=== PATIENT | female | born 1955 | race Caucasian/White ===

== ENCOUNTER 2018-02-03 08:28 | Day surgery (SDC) | payer BC ==
--- NOTE | 2018-02-03 08:18 | HP ---
DATE OF SURGERY: 02/03/2018 HISTORY OF PRESENT ILLNESS: The patient is a 62 year-old with no prior colonoscopy, no bloody stools, no pain and no change in bowel movements. Family in the past who had colon cancer, aunt had colon cancer, had mother and some uncles had some polyps. PAST MEDICAL HISTORY: Hypercholesterolemia, hypertension. PAST SURGICAL HISTORY: Abscess on buttock area in the past. MEDICATIONS: Pravastatin, aspirin, losartan. ALLERGIES: NKDA. FAMILY HISTORY: Family in the past who had colon cancer, had an aunt had colon cancer. Liver disease, heart disease and cancer. SOCIAL HISTORY: No smoking or alcohol abuse. REVIEW OF SYSTEMS: Twelve systems reviewed. No chest pain or palpitations other systems negative or noncontributory as above and per preadmission questionnaire. PHYSICAL EXAMINATION: GENERAL: No acute distress. HEENT: Sclerae nonicteric. NECK: No JVD. CHEST: Equal excursion, nonlabored breathing. CVS: Regular rate and rhythm. ABDOMEN: Soft. No peritoneal signs. EXTREMITIES: No significant edema. NEURO: Alert, oriented, moving extremities symmetrically. No gross motor deficits noted. RECTAL: Deferred timed to endoscopy exam. IMPRESSION: Patient in need for screening colonoscopy. I feel she is a candidate. She is shown the risk sheet and explained the procedure in detail including but not limited to bleeding or infection, small risk of bowel injury or perforation possibly requiring open procedure, risk of missed or nondiagnosis or incomplete exam possibly requiring barium enema, other studies or procedures, general risk of bowel prep or sedation, postoperative risk of nausea or cramping but not limited to. She understands and agrees to the planned procedure and will proceed with outpatient screening colonoscopy.
[~2018-02-03 08:28] MED LIST: Lactated Ringers 1,000 ML IV ONE; Lactated Ringers 1,000 ML IV SCH
[2018-02-03] MEDS ORDERED: DIPRIVAN 200 MG/20 ML IV ONE (08:29)
[2018-02-03 08:57] VITALS: O2SAT 100
[2018-02-03 11:28] VITALS: PULSE 72
[2018-02-03 12:02] VITALS: BP 157/91
--- NOTE | 2018-02-03 14:38 | OP ---
SURGERY DATE/TIME: 02/03/2018 1027 PREOPERATIVE DIAGNOSIS: Need for screening colonoscopy. POSTOPERATIVE DIAGNOSES: 1) Small polyp sigmoid colon, small raised lesion transverse colon, sigmoid colon and rectum, small raised lesion versus hyperplastic lesion. 2) Tortuous colon. 3) Mild diverticulosis. 4) Small internal and external hemorrhoids. PROCEDURES: 1) Colonoscopy to cecum, hot snare polypectomy, small sigmoid colon polyp. 2) Hot biopsy removal of small raised lesion versus hyperplastic lesion versus early polyps. Transverse colon x3, sigmoid colon x1, rectum x2. SURGEON: Dr. Andrew Ruggiero. ANESTHESIA: MAC. ESTIMATED BLOOD LOSS: Minimal. INDICATIONS: As noted above. Risks and benefits explained in detail but not limited to and consent obtained. DESCRIPTION OF PROCEDURE AND FINDINGS: The patient is taken to the endoscopy room. After official time out and no disagreement with planned procedure, digital rectal exam did not reveal any rectal masses. She had some internal and external hemorrhoids. Video colonoscope inserted up through the tortuous sigmoid, descending, transverse and ascending colon. With external pressure the scope was eventually able to be passed down ascending colon to cecum. Appendiceal orifice and valve well visualized. Prep overall was fair with some areas of liquidy semi-solid and solid stool that was able to be suction irrigated as clear as possible. Just slightly limiting the exam for very tiny lesions. Otherwise on slow careful withdrawal of the scope over the next 10 minutes there were no signs of any large polyps, masses or obstructing lesions. There were three very small raised lesions versus early polyps versus hyperplastic lesions in the transverse colon removed with hot biopsy forceps with brief bursts of cautery. Good hemostasis noted. Scope pulled back to the left colon. She had mild diverticulosis. In the more proximal sigmoid colon had small raised lesion versus hyperplastic lesion versus early polyp removed with hot biopsy forceps, and in the more distal sigmoid colon there was about 22 cm a 3 mm polyp was removed with hot snare polypectomy with brief bursts of cautery. Good hemostasis noted. Polyp was retrieved per the staff. The scope was slowly and carefully withdrawn back to the rectum. Two to three very small raised lesions versus hyperplastic lesions versus early polyps removed with hot biopsy forceps with brief bursts of cautery. Good hemostasis noted. Otherwise she had some small internal and external hemorrhoids. There were no signs of any large polyps, masses or obstructing lesions. The scope is withdrawn. Findings discussed with the family out in the waiting area. I will see her back in the office in a week or two to go over the results. Likely pending path results I recommend follow up colonoscopy in three years if any of these are adenomas.
== END 2018-02-03 12:00 | disposition home or self-care (01) ==
LOC: SDC 08:28
PROVIDERS: ATTEND Surgery
DX: Z12.11 Encounter for screening for malignant neoplasm of colon (principal); K63.5 Polyp of colon; K63.9 Disease of intestine, unspecified; K62.9 Disease of anus and rectum, unspecified; K57.90 Diverticulosis of intestine, part unspecified, without perforation or abscess without bleeding; K64.4 Residual hemorrhoidal skin tags; K64.8 Other hemorrhoids; Z80.0 Family history of malignant neoplasm of digestive organs; E78.00 Pure hypercholesterolemia, unspecified; I10 Essential (primary) hypertension; Z79.899 Other long term (current) drug therapy
CPT/HCPCS: 88305; 94250; J2704

== ENCOUNTER 2021-10-04 13:52 | Day surgery (SDC) | payer MEDICARE, OTHER ==
[2021-10-04] MEDS ORDERED: LIDOCAINE HCL 2% 100 MG/5 ML IJ ONE (13:53)
[2021-10-04] MEDS ORDERED: Depo-Medrol 40 MG/ML IM ONE (13:53)
[2021-10-04] MEDS ORDERED: Lactated Ringers 1,000 ML IV ONE (15:06)
[2021-10-04] MEDS ORDERED: DIPRIVAN 200 MG/20 ML IV ONE (15:48)
--- NOTE | 2021-10-04 21:52 | XRAY ---
Indication: Bilateral L4-S1 MBB. Intraoperative fluoroscopy provided for 12 seconds. Single digital spot image submitted for interpretation demonstrates posterior needle tips projecting over the expected left and right L4-S1 nerve roots. Correlate with intraoperative findings/report.
--- NOTE | 2021-10-04 22:12 | XRAY ---
12 seconds of fluoroscopy was used in surgery for a bilateral L4-S1 MBB.
== END 2021-10-04 16:04 | disposition home or self-care (01) ==
LOC: SDC-PAIN 13:52
PROVIDERS: ATTEND Psychiatry & Neurology Pain Medicine
DX: M47.816 Spondylosis without myelopathy or radiculopathy, lumbar region (principal); Z79.899 Other long term (current) drug therapy
CPT/HCPCS: 64493; 64494; 72020; 77002; J1030; J2704

== ENCOUNTER 2021-11-01 11:35 | Day surgery (SDC) | payer MEDICARE, OTHER ==
[2021-11-01] MEDS ORDERED: Marcaine Mpf 0.5% Vial 30 Ml IJ ONE (11:36)
[2021-11-01] MEDS ORDERED: Depo-Medrol 40 MG/ML IM ONE (11:36)
[2021-11-01] MEDS ORDERED: Lactated Ringers 1,000 ML IV ONE (12:48)
--- NOTE | 2021-11-01 15:04 | XRAY ---
Indication: Bilateral L4-S1 MBB. Intraoperative fluoroscopy provided for 10 seconds. Single digital spot image submitted for interpretation demonstrates posterior needle tips projecting over the expected left and right L4-S1 nerve roots. Correlate with intraoperative findings/report.
--- NOTE | 2021-11-01 15:34 | XRAY ---
10 seconds fluoroscopy time in surgery for bilateral L4-S1 MBB.
== END 2021-11-01 13:45 | disposition home or self-care (01) ==
LOC: SDC-PAIN 11:35
PROVIDERS: ATTEND Psychiatry & Neurology Pain Medicine
DX: M47.816 Spondylosis without myelopathy or radiculopathy, lumbar region (principal); Z79.899 Other long term (current) drug therapy
CPT/HCPCS: 64493; 64494; 72020; 77002; J1030

== ENCOUNTER 2021-11-29 15:20 | Day surgery (SDC) | payer MEDICARE, OTHER ==
[2021-11-29] MEDS ORDERED: XYLOCAINE-MPF 1% 5ML SDV IJ ONE (15:21)
[2021-11-29] MEDS ORDERED: Depo-Medrol 40 MG/ML IM ONE (15:21)
[2021-11-29] MEDS ORDERED: Marcaine Mpf 0.5% Vial 30 Ml IJ ONE (15:21)
[2021-11-29] MEDS ORDERED: Lactated Ringers 1,000 ML IV ONE (16:35)
[2021-11-29] MEDS ORDERED: DIPRIVAN 200 MG/20 ML IV ONE (17:38)
--- NOTE | 2021-11-30 07:42 | XRAY ---
Indication: Right L4-S1 RFA. Intraoperative fluoroscopy provided for 18 seconds. 3 digital spot image submitted for interpretation demonstrates posterior needle tips projecting over the expected right L4-S1 nerve roots. Correlate with intraoperative findings/report.
--- NOTE | 2021-11-30 22:06 | XRAY ---
18 seconds of fluoroscopy was used in surgery for a right L4-S1 RFA.
== END 2021-11-29 18:25 | disposition home or self-care (01) ==
LOC: SDC-PAIN 15:20
PROVIDERS: ATTEND Psychiatry & Neurology Pain Medicine
DX: M47.816 Spondylosis without myelopathy or radiculopathy, lumbar region (principal); Z79.899 Other long term (current) drug therapy
CPT/HCPCS: 64635; 64636; 72100; 77002; J1030; J2704

== ENCOUNTER 2021-12-06 11:40 | Day surgery (SDC) | payer MEDICARE, OTHER ==
[2021-12-06] MEDS ORDERED: Marcaine Mpf 0.5% Vial 30 Ml IJ ONE (11:41)
[2021-12-06] MEDS ORDERED: XYLOCAINE-MPF 1% 5ML SDV IJ ONE (11:41)
[2021-12-06] MEDS ORDERED: Depo-Medrol 40 MG/ML IM ONE (11:41)
[2021-12-06] MEDS ORDERED: DIPRIVAN 200 MG/20 ML IV ONE (14:19)
--- NOTE | 2021-12-06 16:52 | XRAY ---
Indication: Left L4-S1 RFA. Intraoperative fluoroscopy provided for 16 seconds. 4 digital spot image submitted for interpretation images demonstrates posterior needle tips projecting over the expected left L4-S1 nerve roots. Correlate with intraoperative findings/report.
--- NOTE | 2021-12-06 16:56 | XRAY ---
16 seconds of fluoroscopy was used in surgery for a left L4-S1 RFA.
[2021-12-06] MEDS ORDERED: Lactated Ringers 1,000 ML IV ONE (17:37)
== END 2021-12-06 14:50 | disposition home or self-care (01) ==
LOC: SDC-PAIN 11:40
PROVIDERS: ATTEND Psychiatry & Neurology Pain Medicine
DX: M47.816 Spondylosis without myelopathy or radiculopathy, lumbar region (principal); Z79.899 Other long term (current) drug therapy
CPT/HCPCS: 64635; 64636; 72100; 77002; J1030; J2704

== ENCOUNTER 2021-12-27 07:14 | Day surgery (SDC) | payer MEDICARE, OTHER ==
[2021-12-27] MEDS ORDERED: Depo-Medrol 40 MG/ML IM ONE (07:15)
[2021-12-27] MEDS ORDERED: BUPIVACAINE 0.5% VIAL IJ ONE (07:15)
[2021-12-27] MEDS ORDERED: DIPRIVAN 200 MG/20 ML IV ONE (09:02)
--- NOTE | 2021-12-27 11:44 | XRAY ---
Indication: Bilateral SI joint injection. Intraoperative fluoroscopy provided for 15 seconds. 5 digital spot image submitted for interpretation demonstrates posterior needle tip projecting over the left and right SI joint. Correlate with intraoperative findings/report.
--- NOTE | 2021-12-27 12:10 | XRAY ---
15 seconds of fluoroscopy was used in surgery for bilateral SI joint injections.
[2021-12-27] MEDS ORDERED: Lactated Ringers 1,000 ML IV ONE (12:59)
== END 2021-12-27 09:22 | disposition home or self-care (01) ==
LOC: SDC-PAIN 07:14
PROVIDERS: ATTEND Psychiatry & Neurology Pain Medicine
DX: M46.1 Sacroiliitis, not elsewhere classified (principal); Z79.899 Other long term (current) drug therapy
CPT/HCPCS: 01992; 27096; 72202; 77002; G0260; J1030; J2704

== ENCOUNTER 2022-05-30 15:07 | Day surgery (SDC) | payer MEDICARE, OTHER ==
[2022-05-30] MEDS ORDERED: BUPIVACAINE 0.5% VIAL IJ ONE (15:08)
[2022-05-30] MEDS ORDERED: Depo-Medrol 40 MG/ML IM ONE (15:08)
[2022-05-30] MEDS ORDERED: LIDOCAINE HCL 1% 50 MG/5 ML VL PF IJ ONE (15:08)
[2022-05-30] MEDS ORDERED: Lactated Ringers 1,000 ML IV ONE (15:42)
[2022-05-30] MEDS ORDERED: DIPRIVAN 200 MG/20 ML IV ONE (16:01)
--- NOTE | 2022-05-31 10:08 | XRAY ---
30 seconds of fluoroscopy was used in surgery for a left sacroiliac joint injection.
== END 2022-05-30 17:20 | disposition home or self-care (01) ==
LOC: SDC-PAIN 15:07
PROVIDERS: ATTEND Psychiatry & Neurology Pain Medicine
DX: M46.1 Sacroiliitis, not elsewhere classified (principal); Z79.899 Other long term (current) drug therapy
CPT/HCPCS: 64625; 72170; 77002; J1030; J2001; J2704

== ENCOUNTER 2022-11-14 12:51 | Day surgery (SDC) | payer MEDICARE, OTHER ==
[2022-11-14] MEDS ORDERED: Depo-Medrol 40 MG/ML IM ONE (12:52)
[2022-11-14] MEDS ORDERED: BUPIVACAINE 0.5% VIAL IJ ONE (12:52)
[2022-11-14] MEDS ORDERED: DIPRIVAN 200 MG/20 ML IV ONE (14:41)
[2022-11-14] MEDS ORDERED: Lactated Ringers 1,000 ML IV ONE (15:09)
--- NOTE | 2022-11-14 16:55 | XRAY ---
Indication: Bilateral SI joint injection. Intraoperative fluoroscopy provided for 21 seconds. 4 digital spot image submitted for interpretation demonstrates posterior needle tip projecting over the expected left and right SI joint. Correlate with intraoperative findings/report.
--- NOTE | 2022-11-14 16:57 | XRAY ---
21 seconds of fluoroscopy was used in surgery for a bilateral sacroiliac joint injection.
== END 2022-11-14 15:15 | disposition home or self-care (01) ==
LOC: SDC-PAIN 12:51
PROVIDERS: ATTEND Psychiatry & Neurology Pain Medicine
DX: M46.1 Sacroiliitis, not elsewhere classified (principal)
CPT/HCPCS: 01992; 27096; 72202; 77002; G0260; J1030; J2704

== ENCOUNTER 2023-08-14 10:33 | Day surgery (SDC) | payer MEDICARE, OTHER ==
[2023-08-14] MEDS ORDERED: Depo-Medrol 40 MG/ML IM ONE (10:34)
[2023-08-14] MEDS ORDERED: BUPIVACAINE 0.5% VIAL IJ ONE (10:34)
[2023-08-14] MEDS ORDERED: BENADRYL 50 MG/ML ONE (11:59)
[2023-08-14] MEDS ORDERED: Zofran 4 MG/2 ML VIAL ONE (11:59)
[2023-08-14] MEDS ORDERED: DIPRIVAN 200 MG/20 ML IV ONE (11:59)
--- NOTE | 2023-08-14 13:31 | XRAY ---
Indication: Bilateral SI joint injection. Intraoperative fluoroscopy provided for 19 seconds. 2 digital spot image submitted for interpretation demonstrates posterior needle tips projecting over the expected left and right SI joint. Small amount of contrast injected for needle tip placement. Correlate with intraoperative findings/report.
--- NOTE | 2023-08-14 14:07 | XRAY ---
19 seconds of fluoroscopy was used in surgery for a bilateral sacroiliac joint injection.
[2023-08-14] MEDS ORDERED: Lactated Ringers 1,000 ML IV ONE (15:05)
== END 2023-08-14 12:22 | disposition home or self-care (01) ==
LOC: SDC-PAIN 10:33
PROVIDERS: ATTEND Psychiatry & Neurology Pain Medicine
DX: M46.1 Sacroiliitis, not elsewhere classified (principal)
CPT/HCPCS: 27096; 72202; 77002; G0260; J1010; J1200; J2405; J2704; Q9966

== ENCOUNTER 2023-11-20 12:32 | Day surgery (SDC) | payer MEDICARE, OTHER ==
[2023-11-20] MEDS ORDERED: Depo-Medrol 40 MG/ML IM ONE (12:33)
[2023-11-20] MEDS ORDERED: BUPIVACAINE 0.5% VIAL IJ ONE (12:33)
[2023-11-20] MEDS ORDERED: LIDOCAINE HCL 1% 50 MG/5 ML VL PF IJ ONE (12:33)
[2023-11-20] MEDS ORDERED: Lactated Ringers 1,000 ML IV ONE (14:12)
[2023-11-20] MEDS ORDERED: DIPRIVAN 200 MG/20 ML IV ONE (14:33)
[2023-11-20] MEDS ORDERED: Zofran 4 MG/2 ML VIAL ONE (14:40)
[2023-11-20] MEDS ORDERED: BENADRYL 50 MG/ML ONE (14:40)
--- NOTE | 2023-11-20 20:00 | XRAY ---
Indication: Right L4-S1 RFA Intraoperative fluoroscopy provided for 27 seconds. 3 digital spot image submitted for interpretation demonstrates posterior needle tips projecting over the expected right L4-S1 nerve roots. Correlate with intraoperative findings/report.
--- NOTE | 2023-11-20 20:23 | XRAY ---
27 seconds of fluoroscopy was used in surgery for a right L4-S1 RFA.
== END 2023-11-20 15:10 | disposition home or self-care (01) ==
LOC: SDC-PAIN 12:32
PROVIDERS: ATTEND Psychiatry & Neurology Pain Medicine
DX: M47.816 Spondylosis without myelopathy or radiculopathy, lumbar region (principal)
CPT/HCPCS: 64635; 64636; 72100; 77002; J1200; J2001; J2405; J2704

== ENCOUNTER 2023-11-27 11:53 | Day surgery (SDC) | payer MEDICARE, OTHER ==
[2023-11-27] MEDS ORDERED: LIDOCAINE HCL 1% 50 MG/5 ML VL PF IJ ONE (11:54)
[2023-11-27] MEDS ORDERED: BUPIVACAINE 0.5% VIAL IJ ONE (11:54)
[2023-11-27] MEDS ORDERED: Depo-Medrol 40 MG/ML IM ONE (11:54)
[2023-11-27] MEDS ORDERED: DIPRIVAN 200 MG/20 ML IV ONE (14:30)
[2023-11-27] MEDS ORDERED: Lactated Ringers 1,000 ML IV ONE (14:37)
[2023-11-27] MEDS ORDERED: Zofran 4 MG/2 ML VIAL ONE (14:38)
[2023-11-27] MEDS ORDERED: BENADRYL 50 MG/ML ONE (14:38)
--- NOTE | 2023-11-27 15:15 | XRAY ---
Indication: Left L4-S1 RFA. Intraoperative fluoroscopy provided for 26 seconds. 5 digital spot image submitted for interpretation demonstrates posterior needle tips projecting over the expected left L4-S1 nerve roots. Correlate with intraoperative findings/report.
--- NOTE | 2023-11-27 15:31 | XRAY ---
26 seconds of fluoroscopy was used in surgery for a left L4-S1 RFA.
== END 2023-11-27 15:10 | disposition home or self-care (01) ==
LOC: SDC-PAIN 11:53
PROVIDERS: ATTEND Psychiatry & Neurology Pain Medicine
DX: M47.816 Spondylosis without myelopathy or radiculopathy, lumbar region (principal)
CPT/HCPCS: 64635; 64636; 72100; 77002; J1200; J2001; J2405; J2704

== ENCOUNTER 2024-06-10 12:40 | Day surgery (SDC) | payer MEDICARE, OTHER ==
[2024-06-10] MEDS ORDERED: Depo-Medrol 40 MG/ML IM ONE (12:41)
[2024-06-10] MEDS ORDERED: BUPIVACAINE 0.5% VIAL IJ ONE (12:41)
[2024-06-10] MEDS ORDERED: BENADRYL 50 MG/ML ONE ×2 (15:25→15:44)
[2024-06-10] MEDS ORDERED: Zofran 4 MG/2 ML VIAL ONE ×2 (15:25→15:44)
[2024-06-10] MEDS ORDERED: propofoL IV ONE (15:43)
--- NOTE | 2024-06-10 16:50 | XRAY ---
Indication: Left hip injection. Intraoperative fluoroscopy provided for 9 seconds. Single digital spot image submitted for interpretation demonstrates needle tip lateral to left femur neck. Small amount of contrast injected for needle tip placement. Correlate with intraoperative findings/report.
--- NOTE | 2024-06-10 16:50 | XRAY ---
9 seconds of fluoroscopy was used in surgery for a left intra-articular hip injection.
== END 2024-06-10 16:20 | disposition home or self-care (01) ==
LOC: SDC-PAIN 12:40
PROVIDERS: ATTEND Psychiatry & Neurology Pain Medicine
DX: M16.12 Unilateral primary osteoarthritis, left hip (principal)
CPT/HCPCS: 20610; 73501; 77002; J1200; J2405; J2704; Q9966

== ENCOUNTER 2025-01-14 10:24 | Day surgery (SDC) | payer MEDICARE, OTHER ==
[2025-01-14] MEDS ORDERED: methylPREDNISolone acetate IM ONE (10:25)
[2025-01-14] MEDS ORDERED: BUPIVACAINE 0.5% VIAL IJ ONE (10:25)
[2025-01-14] MEDS ORDERED: Lactated Ringers 1,000 ML IV ONE (11:05)
[2025-01-14] MEDS ORDERED: Zofran 4 MG/2 ML VIAL ONE (12:02)
[2025-01-14] MEDS ORDERED: BENADRYL 50 MG/ML ONE (12:02)
[2025-01-14] MEDS ORDERED: DILAUDID 0.5 MG/0.5 ML SYRINGE ONE (12:02)
[2025-01-14] MEDS ORDERED: propofoL IV ONE (12:09)
--- NOTE | 2025-01-14 14:57 | XRAY ---
Indication: Bilateral SI joint injection. Intraoperative fluoroscopy provided for 20 seconds. 2 digital spot image submitted for interpretation demonstrates posterior needle tip projecting over left and right SI joints. Small amount of contrast injected for both needle tip placement. Correlate with intraoperative findings/report.
--- NOTE | 2025-01-14 17:00 | XRAY ---
20 seconds of fluoroscopy was used in surgery for a bilateral sacroiliac joint injection.
== END 2025-01-14 12:45 | disposition home or self-care (01) ==
LOC: SDC-PAIN 10:24
PROVIDERS: ATTEND Psychiatry & Neurology Pain Medicine
DX: M46.1 Sacroiliitis, not elsewhere classified (principal)